=== PATIENT | male | born 1955 | race Caucasian/White ===

== ENCOUNTER → 2019-03-05 13:47 | Outpatient (CLI) | payer OTHER, SELFPAY ==
[2019-03-05 13:32] VITALS: BMI 51.0
--- NOTE | 2019-03-05 13:54 | RAD_ITS ---
STUDY: X-RAY - RIGHT KNEE REASON FOR EXAM: Male, 63 years old. Pain TECHNIQUE: 4 view(s) of the knee. COMPARISON: None. FINDINGS: Normal visualized distal femur. Normal visualized proximal tibia and fibula. Normal proximal tibiofibular articulation. Normal medial femorotibial compartment. Normal lateral femorotibial compartment. Normal patellofemoral articulation. The soft tissue structures are unremarkable. RAD/Knee 4 or More Views IMPRESSION: Normal x-ray examination of the knee. Electronically Signed: Roslyn Sparrow, at 20:03 EDT Tel , Service support ,
--- NOTE | 2019-03-05 13:54 | RAD_ITS ---
STUDY: X-RAY - LEFT KNEE REASON FOR EXAM: Male, 63 years old. Pain TECHNIQUE: 4 view(s) of the knee. COMPARISON: None. FINDINGS: There is no acute fracture or dislocation. There is mildly decreased joint space in the medial compartment with periarticular osteophyte formation. There is minor degenerative change of the patella. Soft tissues unremarkable and there is no joint effusion. RAD/Knee 4 or More Views IMPRESSION: Mild medial compartment degenerative joint disease. Electronically Signed: Roslyn Sparrow, at 20:01 EDT Tel , Service support ,
== END ==
PROVIDERS: PCP Internal Medicine; Referring Provider Orthopaedic Surgery; Visit Provider Orthopaedic Surgery
DX: M25.561 Pain in right knee (principal); M25.562 Pain in left knee
CPT/HCPCS: 73564